=== PATIENT | female | born 1990 | race Caucasian/White ===

== ENCOUNTER 2018-07-10 10:16 | Observation (INO) ==
[2018-07-10] MEDS ORDERED: 0.9 % Sodium Chloride 1,000 ML IVC ONE (10:38)
[2018-07-10] MEDS ORDERED: Ondansetron 4 MG/2 ML VIAL IVP ONE (10:38)
--- NOTE | 2018-07-10 10:39 | Emergency Department Note ---
Disposition Clinical Impression: Cholelithiasis affecting in third trimester, antepartum Nausea & vomiting Qualifiers: Vomiting type: unspecified Vomiting Intractability: non-intractable Qualified Code(s): R11.2 - Nausea with vomiting, unspecified Disposition: Admitted As Inpatient Condition: Fair Abdominal Pain HPI - General Chief Complaint: ED Abdominal Pain Stated Complaint: 29&1-vomiting, abd pain Time Seen by Provider: 07/10/18 10:28 Source: patient Mode of arrival: ambulatory Limitations: no limitations Nursing Notes Reviewed: Yes Vital Signs Reviewed: Yes - History of Present Illness HPI Narrative: The patient is a 28 year old A0 female that is 29 weeks that presents to the ED for 2 days of abdominal pain. Per patient's report, starting two days ago she has had 2 days of persistent sharp non-radiating right upper quadrant abdominal pain. That she rates a 6-7/10 at present. She denies any exacerbating and alleviating factors. Patient admits to decreased appetite, nausea, and multiple episodes of vomiting and says she vomited 4-5 times today and says her vomit was yellow in color. She says she has been unable to tolerate PO. She denies any hematemesis, and coffee ground emesis. She denies any fever, chills, cough, nasal congestion, chest pain, shortness of breath, diarrhea, constipation, dysuria, hematuria, urinary urgency, back pain, vaginal bleeding, vaginal discharge, numbness, tingling, and weakness. Patient has no taken any medication for her symptoms today. Patient says she has felt her baby move today. She denies any complications with this or her prior . The history, physical exam, and medical decision making was performed by the medical student either while I was physically present and actively involved or I personally re-performed the exam and medical decision making. I have verified the accuracy of the medical student's documentation with regards to the history, physical exam findings, and medical decision making. Pain Scale: 8 - Related Data Home Medications Medication Instructions Recorded Confirmed Ondansetron HCl [Zofran] 4 mg PO Q6H PRN 07/10/18 07/10/18 Vit #108/Iron/FA 1 tab PO DAILY 07/10/18 07/10/18 [ One Tablet] Allergies Allergy/AdvReac Type Severity Reaction Status Date / Time No Known Allergies Allergy Verified 05/13/18 13:43 All systems ED: reviewed and negative except as stated. Constitutional: Denies: fever, chills Eyes: Denies: eye pain, vision change ENT ED: Denies: throat pain, congestion Cardiovascular: Denies: chest pain, palpitations Respiratory: Denies: cough, dyspnea Gastrointestinal: Reports: abdominal pain, nausea, vomiting. Denies: diarrhea, constipation, hematemesis, melena, hematochezia Genitourinary: Denies: urgency, dysuria, frequency, hematuria Musculoskeletal: Denies: back pain, neck pain Integumentary: Denies: rash, lesions Neurological: Denies: headache, weakness, numbness, paresthesias Abdominal Pain PMH - Past Medical History Medical history: Reports: other Female Surgical History: Reports: no surgical history [employer] history: Reports: no [employer] history Psychiatric history: Reports: no psych history - Social History Smoking status: Never smoker Alcohol use: Reports: none Drug use: Reports: none Physical Exam - General Limitations: no limitations General appearance: alert, in no apparent distress - Head Head exam: atraumatic, normocephalic - Eye Eye exam: Present: normal appearance. Absent: scleral icterus, conjunctival injection - ENT ENT exam: normal oropharynx, mucous membranes moist - Neck Neck exam: Present: normal inspection, full ROM, trachea midline - Chest Chest inspection: Present: normal inspection, symmetric chest wall rise - Respiratory Respiratory exam: Present: normal lung sounds bilaterally. Absent: respiratory distress, wheezes - Cardiovascular Cardiovascular exam: Present: regular rate, normal rhythm, normal heart sounds. Absent: systolic murmur, diastolic murmur, rubs, gallop - Abdominal Exam Abdominal exam: Present: tenderness, normal bowel sounds, other (gravid abdomen) . Absent: guarding, rebound, rigidity Abdominal tenderness: Present: RUQ, mild - Extremities Exam Extremities exam: Present: normal inspection, full ROM. Absent: pedal edema - Neurological Exam Neurological exam: Present: alert, oriented X3 - Psychiatric Psychiatric exam: Present: normal affect, normal mood - Skin Skin exam: Present: warm, dry, intact, normal color. Absent: rash, cyanosis, diaphoresis Course Vital Signs Temperature 97.8 F 07/10/18 10:22 Pulse Rate 116 07/10/18 10:22 Respiratory Rate 16 07/10/18 10:22 Blood Pressure 105/69 07/10/18 10:22 O2 Sat by Pulse Oximetry 98 07/10/18 10:22 Temperature 99.2 F 07/10/18 20:03 Pulse Rate 98 07/10/18 20:03 Respiratory Rate 14 07/10/18 20:03 Blood Pressure 91/55 07/10/18 20:03 O2 Sat by Pulse Oximetry 94 07/10/18 20:03 Oxygen Delivery Oxygen Delivery Room Air Abdominal Pain - MDM Narrative Medical decision making narrative: 28 year female who is 29 and 1 weeks presents emergency department with concern for right upper quadrant abdominal pain, nausea, vomiting. Patient 's vital signs were within normal limits. Patient was given fluids. She is also given Zofran. Pain medication. We obtained a gallbladder ultrasound and this revealed cholelithiasis with nonspecific bladder wall thickening as well as no pericholecystic fluid. At this time, patient symptomatic with her gallbladder. I spoke with Dr. Rubin who agreed to follow patient on the floor. He had no recommendations for any medication menstruation at time. I spoke with the [employer] midwifery agreed to accept patient for admission. Patient was still having discomfort at time of admission. Patient was given another dose of pain medication. Patient we will plan for admission. Hemodyanmically stable , uncomfortable, but feeling better than she did before arrival. Vital Signs Temperature 97.8 F 07/10/18 10:22 Pulse Rate 116 07/10/18 10:22 Respiratory Rate 16 07/10/18 10:22 Blood Pressure 105/69 07/10/18 10:22 O2 Sat by Pulse Oximetry 98 07/10/18 10:22 Temperature 99.2 F 07/10/18 20:03 Pulse Rate 98 07/10/18 20:03 Respiratory Rate 14 07/10/18 20:03 Blood Pressure 91/55 07/10/18 20:03 O2 Sat by Pulse Oximetry 94 07/10/18 20:03 Oxygen Delivery Oxygen Delivery Room Air Gallbladder Ultrasound 07/10/18 10:32 IMPRESSION: Cholelithiasis with nonspecific gallbladder wall thickening. No pericholecystic fluid. D/ / Jovani Renner MD / Jovani Renner MD Interpreting Provider: Jovani Renner MD 1248 hrs. US done; updating the patient. Then we will speak with [employer]. 55 hours: She still having some pain and nausea. We spoke with [employer] and they will go ahead and admit her to the hospital. Under their service with surgery consulting. We will consult with Dr. Rubin, who is on for surgery. Patient's in agreement with plan. - Lab Data Result diagrams: 07/10/18 10:39 07/10/18 11:25 Lab Results 07/10/18 07/10/18 07/10/18 Range/Units 10:37 10:37 10:39 WBC 18.1 H (4.3-11.1) K/mcL RBC 4.02 (3.82-4.97) M/mcL Hgb 12.2 (11.5-15.4) g/dL Hct 36.4 (35.3-44.9) % MCV 90.5 (83.0-100.0) fL MCH 30.3 (28.0-33.3) pg MCHC 33.5 (31.6-35.5) g/dL RDW 13.6 (11.5-14.5) % Plt Count 200 (140-400) K/mcL MPV 10.8 (9.4-12.4) fL Immature Gran % 1.2 (0-4) % Seg Neutrophils % 81.1 % Lymphocytes % 10.7 % Monocytes % 6.0 % Eosinophils % 0.7 % Basophils % 0.3 % Neutrophils # 14.7 H (1.6-8.9) K/mcL Lymphocytes # 1.9 (0.6-4.6) K/mcL Monocytes # 1.1 (0.0-1.3) K/mcL Eosinophils # 0.1 (0.0-0.6) K/mcL Basophils # 0.1 (0.0-0.2) K/mcL Sodium (136-145) mEq/L Potassium (3.5-5.1) mEq/L Chloride (98-107) mEq/L Carbon Dioxide (23-29) mEq/L BUN (6-20) mg/dL Creatinine (0.60-1.20) mg/dL Est GFR ( Amer) (> 60) Est GFR (Non-Af Amer) (> 60) BUN/Creatinine Ratio (6-26) Glucose (70-105) mg/dL Calculated Osmolality (280-300) Calcium (8.6-10.3) mg/dL Total Bilirubin (0.3-1.0) mg/dL AST (13-39) Units/L ALT (7-52) Units/L Alkaline Phosphatase (34-104) Units/L Serum Total Protein (6.4-8.9) g/dL Albumin (3.5-5.7) g/dL Globulin (2.4-3.5) g/dL Albumin/Globulin Ratio (1.1-2.2) Ur Specimen Adequacy See below A Urine Color Yellow (Yellow) Urine Clarity Cloudy A (Clear) Urine pH 7.0 (5.0-8.0) pH Units Ur Specific [place] 1.021 (1.010-1.025) Urine Protein Negative (Neg-Trace) mg/dL Urine Glucose (UA) Normal (Normal) mg/dL Urine Ketones 40 H (Negative) mg/dL Urine Blood Negative (Negative) Urine Nitrite Negative (Negative) Urine Bilirubin Negative (Negative) Urine Urobilinogen Normal (Normal) mg/dL Ur Leukocyte Esterase Small H (Negative) Urine Microscopic RBC 0-3 (0-3) per hpf Urine Microscopic WBC 0-3 (0-3) per hpf Ur Squamous Epith Cells Many H (None-Few) per lpf Urine Bacteria None Seen (None-Few) per hpf Hyaline Casts None Seen (None-Few) per lpf Urine Creatinine 23 mg/dL Protein/Creatinin Ratio TNP Urine Total Protein < 4 (1-14) mg/dL 07/10/18 Range/Units 11:25 WBC (4.3-11.1) K/mcL RBC (3.82-4.97) M/mcL Hgb (11.5-15.4) g/dL Hct (35.3-44.9) % MCV (83.0-100.0) fL MCH (28.0-33.3) pg MCHC (31.6-35.5) g/dL RDW (11.5-14.5) % Plt Count (140-400) K/mcL MPV (9.4-12.4) fL Immature Gran % (0-4) % Seg Neutrophils % % Lymphocytes % % Monocytes % % Eosinophils % % Basophils % % Neutrophils # (1.6-8.9) K/mcL Lymphocytes # (0.6-4.6) K/mcL Monocytes # (0.0-1.3) K/mcL Eosinophils # (0.0-0.6) K/mcL Basophils # (0.0-0.2) K/mcL Sodium 134 L (136-145) mEq/L Potassium 3.4 L (3.5-5.1) mEq/L Chloride 103 (98-107) mEq/L Carbon Dioxide 22 L (23-29) mEq/L BUN 7 (6-20) mg/dL Creatinine 0.43 L (0.60-1.20) mg/dL Est GFR ( Amer) > 60 (> 60) Est GFR (Non-Af Amer) > 60 (> 60) BUN/Creatinine Ratio 16 (6-26) Glucose 90 (70-105) mg/dL Calculated Osmolality 276 L (280-300) Calcium 9.0 (8.6-10.3) mg/dL Total Bilirubin 1.3 H (0.3-1.0) mg/dL AST 13 (13-39) Units/L ALT 8 (7-52) Units/L Alkaline Phosphatase 98 (34-104) Units/L Serum Total Protein 7.1 (6.4-8.9) g/dL Albumin 3.7 (3.5-5.7) g/dL Globulin 3.4 (2.4-3.5) g/dL Albumin/Globulin Ratio 1.1 (1.1-2.2) Ur Specimen Adequacy Urine Color (Yellow) Urine Clarity (Clear) Urine pH (5.0-8.0) pH Units Ur Specific [place] (1.010-1.025) Urine Protein (Neg-Trace) mg/dL Urine Glucose (UA) (Normal) mg/dL Urine Ketones (Negative) mg/dL Urine Blood (Negative) Urine Nitrite (Negative) Urine Bilirubin (Negative) Urine Urobilinogen (Normal) mg/dL Ur Leukocyte Esterase (Negative) Urine Microscopic RBC (0-3) per hpf Urine Microscopic WBC (0-3) per hpf Ur Squamous Epith Cells (None-Few) per lpf Urine Bacteria (None-Few) per hpf Hyaline Casts (None-Few) per lpf Urine Creatinine mg/dL Protein/Creatinin Ratio Urine Total Protein (1-14) mg/dL Attestation Statement - Attestation Attestation: This documentation is done with the assistance of Dragon dictation. Despite efforts made to ensure accuracy, there may be inaccuracies in adjunct faculty instructor or spelling and typographical errors. I examined this patient and my medical decision-making was reviewed with the Resident Physician. I agree with the documented findings, disposition and treatment plan as described except to the extent set forth below. Patient seen and evaluated today by Dr. Paulson and myself, I agree with his evaluation and management plan, supervise care the patient's stay. Patient was a with some abdominal pains nauseous she is 29 weeks readings been going okay during this she follows here. She is feeling baby move. We did a bedside ultrasound which showed heart tones and right upper quadrant showed no stones in the gallbladder. Benadryl workup on her and then speak with OB. Then reassess. Triage had spoke with OB prior to her coming into the emergency department and they said ever seen in emergency department first and then they would be happy to speak with us about her after we do a workup..
[2018-07-10] MEDS ORDERED: *HR* Nalbuphine 10 MG/ML AMPUL IV STA (10:47)
[2018-07-10 10:51] LABS: Bilirubin,Urine Negative (Negative); Blood,Urine Negative (Negative); Clarity,Urine Cloudy (Clear); Color,Urine Yellow (Yellow); Glucose,Urine (UA) Normal (Normal); Ketones,Urine 40 mg/dL (Negative); Leukocyte Esterase,Urine Small (Negative); Nitrite,Urine Negative (Negative); Protein,Urine Negative (Neg-Trace); Specific Gravity,Urine 1.021 (1.010-1.025); Urobilinogen,Urine Normal (Normal)
[2018-07-10 10:54] LABS: Bacteria,Urine None Seen per hpf (None-Few); Hyaline Casts,Urine None Seen per lpf (None-Few); RBC,Urine 0-3 per hpf (0-3); Squamous Epithelial Cell,Urine Many per lpf (None-Few); WBC,Urine 0-3 per hpf (0-3)
[2018-07-10 11:11] LABS: Creatinine,Urine 23 mg/dL
[2018-07-10 11:46] LABS: Basophils # 0.1 K/mcL (0.0-0.2); Basophils % 0.3 %; Eosinophils # 0.1 K/mcL (0.0-0.6); Eosinophils % 0.7 %; Hematocrit 36.4 % (35.3-44.9); Hemoglobin 12.2 g/dL (11.5-15.4); Immature Granulocytes % 1.2 % (0-4); Lymphocytes # 1.9 K/mcL (0.6-4.6); Lymphocytes % 10.7 %; Mean Corpuscular HGB Conc 33.5 g/dL (31.6-35.5); Mean Corpuscular Hemoglobin 30.3 pg (28.0-33.3); Mean Corpuscular Volume 90.5 fL (83.0-100.0); Mean Platelet Volume 10.8 fL (9.4-12.4); Monocytes # 1.1 K/mcL (0.0-1.3); Neutrophils # 14.7 K/mcL (1.6-8.9); Platelet Count 200 K/mcL (140-400); Red Blood Count 4.02 M/mcL (3.82-4.97); Red Cell Distribution Width 13.6 % (11.5-14.5); Segmented Neutrophils % 81.1 %
[2018-07-10] MEDS ORDERED: *HR* Nalbuphine 10 MG/ML AMPUL IVP STA (12:54)
[2018-07-10] MEDS ORDERED: 0.9 % Sodium Chloride 1,000 ML ONE (13:08)
[2018-07-10] MEDS: 0.9 % Sodium Chloride 1,000 ML IVC SCH ×2 (13:12→21:47)
[2018-07-10 13:23] LABS: Alanine Aminotransferase 8 Units/L (7-52); Albumin 3.7 g/dL (3.5-5.7); Albumin/Globulin Ratio 1.1 (1.1-2.2); Alkaline Phosphatase 98 Units/L (34-104); Aspartate Amino Transferase 13 Units/L (13-39); BUN/Creatinine Ratio 16 (6-26); Bilirubin,Total 1.3 mg/dL (0.3-1.0); Blood Urea Nitrogen 7 mg/dL (6-20); Carbon Dioxide 22 mEq/L (23-29); Chloride 103 mEq/L (98-107); Globulin 3.4 g/dL (2.4-3.5); Glucose 90 mg/dL (70-105); Osmolality,Calculated 276 (280-300); Potassium 3.4 mEq/L (3.5-5.1); Sodium 134 mEq/L (136-145); Total Protein 7.1 g/dL (6.4-8.9); eGFR For Non-African Americans > 60 (> 60)
--- NOTE | 2018-07-10 15:09 | General Surgery Consult Note ---
Date of Encounter: 07/10/18 Time of Encounter: 14:45 Assessment and Plan (1) Cholelithiasis affecting in third trimester, antepartum Current Visit: Yes Status: Acute Discussed with OB team and will proceed with conservative management including: Clear liquids for now and advance to low fat/bland diet as tolerated over the upcoming days IV fluids- 125ml/hour per primary team IV antibiotics-Zosyn Serial abdominal exams No surgical intervention indicated at this time Repeat am CBC If conservative management fails- recommend transfer to [facility] for further management History of Present Illness Consult date: 07/10/18 Reason for consult: gallstones (symptomatic) Requesting physician: Mack Thomas History of present illness: Yelena Curry is a 28 year old female who is 29 weeks . She presented to the ED today with complaints of a 2 days history of RUQ abdominal pain. She states that the pain has been constant for the past 2 days. She reports that it is aggrevated by eating and certain movements. She states that she does have some relief while laying on her left side. She has never experienced pain like this in the past. She does admit to associated nausea and vomiting over the past couple of days. She does not currently feel nauseated and feels thirsty. She admits to chills but denies any fevers. Denies any changes in bowel habits. Denies any diarrhea or constipation. Denies any difficulty with urination. She has had an US of the RUQ complete which shows evidence of gallstones with mild gallbladder wall thickening without pericholecystic fluid. We have been asked to see and evaluate the patient for recommendations. Past Med Surg Social Fam HX - Past Medical History Source: patient, old records reviewed Medical history: other Additional medical history: Hx of diet controlled GDM, tobacco abuse Psychiatric history: no psych history - Past Surgical History Surgical History: no surgical history - Social History Smoking Status: Former smoker Smokeless Tobacco Status: No Alcohol use: none Drug use: none Current living situation: Home - Independent Activity Level: Independent ambulation - Family History Mother Adopted: No Family Member Ethnicity: Non- Living Status: Still Living Hx Family Cardiac Disorders: No Hx Family Respiratory Disorders: No Hx Family Cancer: No Hx Family GI Disorders: No Hx Family Endocrine Disorder: No Hx Family Neuromuscular Disorders: No Hx Family Neurologic Disorders: No Hx Family HEENT Disorders: No Hx Family Autoimmune Disorders: No Medications and Allergies Ondansetron HCl [Zofran] 4 mg PO Q6H PRN 07/10/18 [History] Vit #108/Iron/FA [ One Tablet] 1 tab PO DAILY 07/10/18 [History] Allergy/AdvReac Type Severity Reaction Status Date / Time No Known Allergies Allergy Verified 05/13/18 13:43 Review of Systems All systems PM: reviewed and no additional remarkable complaints except as stated (in the HPI) All systems PM: The remainder of the systems were reviewed and are negative General Surgery Exam Initial Vital Signs Temp Pulse Resp BP Pulse Ox 97.8 F 116 16 105/69 98 07/10/18 10:22 07/10/18 10:22 07/10/18 10:22 07/10/18 10:22 07/10/18 10:22 - General physical appearance well developed, well nourished, no distress - Eyes PERRL, normal ocular movement - ENT normal mucosa, atraumatic, normocephalic - Neck trachea midline - Respiratory normal expansion, normal respiratory effort, clear to auscultation - Cardiovascular Cardiovascular exam: Present: RRR - Abdomen Abdomen general surgery: Present: bowel sounds present, soft, tender (minimal) Abdominal Tenderness: Present: RUQ - Integumentary Integumentary general surgery: Present: warm and dry - Neurologic Present: CN 2-12 grossly intact - Musculoskeletal Present: normal gait, normal posture - Psychiatric Psychiatric general surgery: Present: appropriate, oriented to person, oriented to place, oriented to time, speech is normal, memory intact Exam Initial Vital Signs Temp Pulse Resp BP Pulse Ox 97.8 F 116 16 105/69 98 07/10/18 10:22 07/10/18 10:22 07/10/18 10:22 07/10/18 10:22 07/10/18 10:22 Results - Labs 07/10/18 10:39 07/10/18 11:25 Abnormal lab results WBC 18.1 K/mcL (4.3-11.1) H 07/10/18 10:39 Neutrophils # 14.7 K/mcL (1.6-8.9) H 07/10/18 10:39 Sodium 134 mEq/L (136-145) L 07/10/18 11:25 Potassium 3.4 mEq/L (3.5-5.1) L 07/10/18 11:25 Carbon Dioxide 22 mEq/L (23-29) L 07/10/18 11:25 Creatinine 0.43 mg/dL (0.60-1.20) L 07/10/18 11:25 Calculated Osmolality 276 (280-300) L 07/10/18 11:25 Total Bilirubin 1.3 mg/dL (0.3-1.0) H 07/10/18 11:25 Ur Specimen Adequacy See below A 07/10/18 10:37 Urine Clarity Cloudy (Clear) A 07/10/18 10:37 Urine Ketones 40 mg/dL (Negative) H 07/10/18 10:37 Ur Leukocyte Esterase Small (Negative) H 07/10/18 10:37 Ur Squamous Epith Cells Many per lpf (None-Few) H 07/10/18 10:37 All other labs normal. - Imaging US - abdomen: report reviewed Additional studies: Gallbladder Ultrasound 07/10/18 10:32 IMPRESSION: Cholelithiasis with nonspecific gallbladder wall thickening. No pericholecystic fluid. D/ / Jovani Renner MD / Jovani Renner MD Interpreting Provider: Jovani Renner MD Consult Discharge Plan - Plan Referrals: NONE,PCP [Primary Care Provider] - - Attending Attestation For this encounter, I have reviewed the BARREL INSPECTOR or PA documentation, treatment plan, and medical decision making; and I have had face to face time with this patient.
[2018-07-10] MEDS: Piperacillin/Tazobactam 3.375 GM in 0.9 % Sodium Chloride Mini Bag 100 ML IVPB SCH ×2 (16:21→23:40)
--- NOTE | 2018-07-10 17:11 | OB/GYN History & Physical ---
Date of Encounter: 07/10/18 Time of Encounter: 17:06 Assessment and Plan (1) 30 weeks gestation of Current visit: Yes Status: Acute (2) Cholelithiasis affecting in third trimester, antepartum Current visit: Yes Status: Acute Surgery consult ordered. Pain medication PRN. Currently on clear liquid diet. Will advance to bland diet as tolerated. Dietary consult ordered (3) Nausea & vomiting Current visit: Yes Status: Acute Qualifiers: Vomiting type: unspecified Vomiting Intractability: non-intractable Qualified Code(s): R11.2 - Nausea with vomiting, unspecified (4) History of gestational diabetes in prior , currently in third trimester Current visit: Yes Status: Acute Will do fasting and 2 hour PP accuchecks while inpatient. I do not feel she would tolerate a 100 gm glucose load at this time due to her pain. If accuchecks normal. Continue to monitor. A1C added to AM labs also. History of Present Illness Chief complaint: RUQ pain with nausea and vomiting HPI: Ms. Curry is a 28 year old female G 3 P 1-0-1-1 at 30 1/7 weeks presented to emergency department for 2 days of RUQ pain and nausea and vomiting. She denies any knowledge of gallstones prior to today. She denies any complications with this . She was a diet controlled diabetic with her first . She has an order for a 3 hour GTT since 06/24/18 but has yet to complete the test. She denies any contractions, vaginal bleeding or leaking fluid. She does report good movements. Past Med Surg Social Fam HX - Past Medical History Source: patient Medical history: no medical history, other Additional medical history: Hx of diet controlled GDM, tobacco abuse Psychiatric history: no psych history - Past Surgical History Surgical History: no surgical history Additional surgical history: Hx of diet controlled GDM, Tobacco use - Social History Smoking Status: Former smoker Smokeless Tobacco Status: No Alcohol use: none Drug use: none - Family History Mother Adopted: No Family Member Ethnicity: Non- Living Status: Still Living Hx Family Cardiac Disorders: No Hx Family Respiratory Disorders: No Hx Family Cancer: No Hx Family GI Disorders: No Hx Family Endocrine Disorder: No Hx Family Neuromuscular Disorders: No Hx Family Neurologic Disorders: No Hx Family HEENT Disorders: No Hx Family Autoimmune Disorders: No Obstetrical History - Pregnancies : 3 Para: 1 Term: 1 : 0 Ab's: 1 Livin - History/Complications History/Complications: GDM A1 Medications and Allergies Ondansetron HCl [Zofran] 4 mg PO Q6H PRN 07/10/18 [History] Vit #108/Iron/FA [ One Tablet] 1 tab PO DAILY 07/10/18 [History ] 3 Allergy/AdvReac Type Severity Reaction Status Date / Time No Known Allergies Allergy Verified 05/13/18 13:43 Review of System OB All systems PM: reviewed and no additional remarkable complaints except as stated - Constitutional Constitutional ROS IM: chills, no fatigue, no fever(s), no headache(s), no increased appetite, no lethargy, no weakness - Gastrointestinal Gastrointestinal: abdominal pain, nausea, vomiting (improved with antiemetics given in ER), no change in bowel habits, no constipation, no diarrhea - Genitourinary Genitourinary: no difficulty urinating, no difficulty voiding, no dysuria, no flank pain, no hematuria, no vaginal discharge - Menstruation Menstruation: amenorrhea Exam - Vital Signs Vital signs: Initial Vital Signs Temp Pulse Resp BP Pulse Ox 97.8 F 116 16 105/69 98 07/10/18 10:22 07/10/18 10:22 07/10/18 10:22 07/10/18 10:22 07/10/18 10:22 - Constitutional Constitutional: well developed, well nourished, no acute distress, average body habitus - HEENT HEENT: EOMI - Lungs Respiratory exam: CTAB - Cardiovascular Cardiovascular exam: RRR - Abdomen Abdomen: Present: bowel sounds normal, gravid, non tender. Absent: guarding noted - Extremities Extremities exam: warm - Comments Comments: monitoring pending Results Result Diagrams: 07/10/18 10:39 07/10/18 11:25 Abnormal lab results WBC 18.1 K/mcL (4.3-11.1) H 07/10/18 10:39 Neutrophils # 14.7 K/mcL (1.6-8.9) H 07/10/18 10:39 Sodium 134 mEq/L (136-145) L 07/10/18 11:25 Potassium 3.4 mEq/L (3.5-5.1) L 07/10/18 11:25 Carbon Dioxide 22 mEq/L (23-29) L 07/10/18 11:25 Creatinine 0.43 mg/dL (0.60-1.20) L 07/10/18 11:25 Calculated Osmolality 276 (280-300) L 07/10/18 11:25 Total Bilirubin 1.3 mg/dL (0.3-1.0) H 07/10/18 11:25 Ur Specimen Adequacy See below A 07/10/18 10:37 Urine Clarity Cloudy (Clear) A 07/10/18 10:37 Urine Ketones 40 mg/dL (Negative) H 07/10/18 10:37 Ur Leukocyte Esterase Small (Negative) H 07/10/18 10:37 Ur Squamous Epith Cells Many per lpf (None-Few) H 07/10/18 10:37 All other labs normal. US - abdomen: report reviewed (Gallstones and wall thickening)
[2018-07-10] MEDS: Ondansetron ODT 4 MG TAB.RAPDIS PO PRN (18:20)
[2018-07-10] MEDS: *HR* HYDROmorphone (PF) 1 MG/ML SYRINGE IVP PRN ×3 (18:20→21:48)
[2018-07-11] MEDS ORDERED: 0.9 % Sodium Chloride 1,000 ML IV.SOLN IV ONE (10:34)
[2018-07-11] MEDS ORDERED: Ondansetron ODT 4 MG TAB.RAPDIS PO ONE ×2 (10:34)
[2018-07-11] MEDS ORDERED: *HR* HYDROmorphone (PF) 1 MG/ML SYRINGE IVP ONE ×4 (10:34)
[2018-07-11] MEDS ORDERED: Piperacillin/Tazobactam 3.375 GM VIAL IVPB ONE (10:34)
[2018-07-11] MEDS ORDERED: Prenatal Vit/FA 1 EACH TABLET PO ONE (10:34)
[2018-07-11] MEDS ORDERED: 0.9 % Sodium Chloride (Mini-Bag +) 100 ML IVBAG IVC ONE (10:34)
[2018-07-11 11:20] LABS: Basophils # 0.1 K/mcL (0.0-0.2); Basophils % 0.5 %; Eosinophils # 0.2 K/mcL (0.0-0.6); Eosinophils % 1.4 %; Hematocrit 31.1 % (35.3-44.9); Hemoglobin 10.3 g/dL (11.5-15.4); Immature Granulocytes % 1.5 % (0-4); Immature Platelets 5.8 % (1.1-6.1); Lymphocytes # 1.9 K/mcL (0.6-4.6); Lymphocytes % 12.8 %; Mean Corpuscular HGB Conc 33.1 g/dL (31.6-35.5); Mean Corpuscular Hemoglobin 30.3 pg (28.0-33.3); Mean Corpuscular Volume 91.5 fL (83.0-100.0); Mean Platelet Volume 11.2 fL (9.4-12.4); Monocytes % 7.1 %; Neutrophils # 11.2 K/mcL (1.6-8.9); Platelet Count 182 K/mcL (140-400); Red Cell Distribution Width 13.6 % (11.5-14.5); Segmented Neutrophils % 76.7 %
--- NOTE | 2018-07-11 12:08 | General Surgery Progress Note ---
Date of Encounter: 07/11/18 Time of Encounter: 11:15 - Assessment and Plan (1) Cholelithiasis affecting in third trimester, antepartum Current Visit: Yes Status: Acute WBC is downtrending 18.1 to 14.2 today. Patient reports she is feeling better. She is afebrile. Tolerating liquids with increased pain, n/v. She reports RUQ pain is mostly only when she moves around. She feels much improved since yesterday. She will be okay to discharge from a surgical perspective she tolerates a full liquid diet without increased pain or vomiting and pending IV antibitoics (can transition to PO augmentin at d.c.). She is recommended to follow-up when she is or sooner if symptoms worsen. Surgery will sign off at this time. Thank you for allowing us to participate in Ms Curry care. Subjective Patient reports: no new complaints, feels better, still having pain (RUQ and only with activity), pain is less, tolerating liquids well, voiding w/o difficulty, flatus, no bowel movement, afebrile Objective Intake and Output 07/10/18 07/11/18 07/11/18 23:59 07:59 15:59 Intake Total 1100 / 1100 Output Total 600 / 600 Balance 1100 / 1100 -600 / -600 Intake: IV Fluids 1100 / 1100 0.9 % Sodium Chloride 1,000 ML 1000 / 1000 @ 125 mls/hr IVC .Q8H JOSE CARLOS Rx#: [id number] Zosyn 3.375 GM In 0.9 % Sodium 100 / 100 Chloride (Mini-Bag +) 100 ML @ 25 mls/hr IVPB Q8HR JOSE CARLOS Rx#: [id number] Output: Urine 600 / 600 Other: Weight 74.162 kg Blood Glucose* 87 Patient Weight 07/11/18 23:59 Weight 74.162 kg - General physical appearance well nourished, no distress, no pain - Eyes normal ocular movement - ENT atraumatic, normocephalic - Neck Neck exam: trachea midline - Respiratory normal expansion, normal respiratory effort, clear to auscultation - Cardiovascular Cardiovascular exam: Present: RRR - Abdomen Abdomen: Present: bowel sounds present, soft, tender (RUQ) Hernia: none - Integumentary no abnormal pigmentation - Neurologic normal sensation - Musculoskeletal normal posture - Psychiatric oriented to time, oriented to person, oriented to place, memory intact - Labs 07/10/18 10:39 07/10/18 11:25 Diabetes panel 07/10/18 Range/Units 11:25 Sodium 134 L (136-145) mEq/L Potassium 3.4 L (3.5-5.1) mEq/L Chloride 103 (98-107) mEq/L Carbon Dioxide 22 L (23-29) mEq/L BUN 7 (6-20) mg/dL Creatinine 0.43 L (0.60-1.20) mg/dL Glucose 90 (70-105) mg/dL Calcium 9.0 (8.6-10.3) mg/dL AST 13 (13-39) Units/L ALT 8 (7-52) Units/L Alkaline Phosphatase 98 (34-104) Units/L Albumin 3.7 (3.5-5.7) g/dL Calcium panel 07/10/18 Range/Units 11:25 Calcium 9.0 (8.6-10.3) mg/dL Albumin 3.7 (3.5-5.7) g/dL Pituitary panel 07/10/18 Range/Units 11:25 Sodium 134 L (136-145) mEq/L Potassium 3.4 L (3.5-5.1) mEq/L Chloride 103 (98-107) mEq/L Carbon Dioxide 22 L (23-29) mEq/L BUN 7 (6-20) mg/dL Creatinine 0.43 L (0.60-1.20) mg/dL Glucose 90 (70-105) mg/dL Calcium 9.0 (8.6-10.3) mg/dL Adrenal panel 07/10/18 Range/Units 11:25 Sodium 134 L (136-145) mEq/L Potassium 3.4 L (3.5-5.1) mEq/L Chloride 103 (98-107) mEq/L Carbon Dioxide 22 L (23-29) mEq/L BUN 7 (6-20) mg/dL Creatinine 0.43 L (0.60-1.20) mg/dL Glucose 90 (70-105) mg/dL Calcium 9.0 (8.6-10.3) mg/dL Total Bilirubin 1.3 H (0.3-1.0) mg/dL AST 13 (13-39) Units/L ALT 8 (7-52) Units/L Alkaline Phosphatase 98 (34-104) Units/L Albumin 3.7 (3.5-5.7) g/dL - VTE Documentation of Mechanical Device: Intermittent pneumatic compression device Consult Discharge Plan - Plan Referrals: NONE,PCP [Primary Care Provider] -
[2018-07-11 12:22] LABS: Albumin/Globulin Ratio 1.2 (1.1-2.2); Bilirubin,Direct 0.3 mg/dL (0.0-0.2); Bilirubin,Indirect 1.3 mg/dL (0.0-1.2); Bilirubin,Total 1.6 mg/dL (0.3-1.0); Globulin 2.5 g/dL (2.4-3.5); Total Protein 5.5 g/dL (6.4-8.9)
[2018-07-11] MEDS: *HR* OxyCODONE/APAP 5/325 TABLET PO PRN ×3 (12:49→21:07)
--- NOTE | 2018-07-11 13:19 | OB/GYN Progress Note ---
Date of Encounter: 07/11/18 Time of Encounter: 13:16 - Assessment and Plan (1) Cholelithiasis affecting in third trimester, antepartum Current Visit: Yes Status: Acute we will advance patient's diet, switch dilaudid to percocet, stop antibiotics surgery has signed, no surgical interventions needed at this time. Subjective - Subjective Interval history: Patient is tolerating PO liquids, no LOF, VB or ctxs, feels good FM Objective - Vital Signs Vital Signs: Vital Signs Temp Pulse Resp BP Pulse Ox 07/11/18 01:30 98.7 F 94 14 88/55 95 07/10/18 23:40 98.7 F 100 14 97/59 97 07/10/18 20:03 99.2 F 98 14 91/55 94 07/10/18 14:30 98.8 F 98 16 101/68 97 Intake and Output 07/10/18 07/11/18 07/11/18 23:59 07:59 15:59 Intake Total 1100 / 1100 Output Total 600 / 600 200 / 200 Balance 1100 / 1100 -600 / -600 -200 / -200 Intake: IV Fluids 1100 / 1100 0.9 % Sodium Chloride 1,000 ML 1000 / 1000 @ 125 mls/hr IVC .Q8H JOSE CARLOS Rx#: [id number] Zosyn 3.375 GM In 0.9 % Sodium 100 / 100 Chloride (Mini-Bag +) 100 ML @ 25 mls/hr IVPB Q8HR JOSE CARLOS Rx#: [id number] Output: Urine 600 / 600 200 / 200 Other: Stool Characteristics Normal for Patient Weight 74.162 kg Blood Glucose* 87 Patient Weight 07/11/18 23:59 Weight 74.162 kg - Exam FHR: category 1 - Labs Labs: Abnormal lab results WBC 14.6 K/mcL (4.3-11.1) H 07/11/18 04:23 RBC 3.40 M/mcL (3.82-4.97) L 07/11/18 04:23 Hgb 10.3 g/dL (11.5-15.4) L D 07/11/18 04:23 Hct 31.1 % (35.3-44.9) L 07/11/18 04:23 Neutrophils # 11.2 K/mcL (1.6-8.9) H 07/11/18 04:23 Sodium 134 mEq/L (136-145) L 07/10/18 11:25 Potassium 3.4 mEq/L (3.5-5.1) L 07/10/18 11:25 Carbon Dioxide 22 mEq/L (23-29) L 07/10/18 11:25 Creatinine 0.43 mg/dL (0.60-1.20) L 07/10/18 11:25 Calculated Osmolality 276 (280-300) L 07/10/18 11:25 Total Bilirubin 1.6 mg/dL (0.3-1.0) H 07/11/18 04:23 Direct Bilirubin 0.3 mg/dL (0.0-0.2) H 07/11/18 04:23 Indirect Bilirubin 1.3 mg/dL (0.0-1.2) H 07/11/18 04:23 AST 12 Units/L (13-39) L 07/11/18 04:23 Serum Total Protein 5.5 g/dL (6.4-8.9) L 07/11/18 04:23 Albumin 3.0 g/dL (3.5-5.7) L 07/11/18 04:23 Ur Specimen Adequacy See below A 07/10/18 10:37 Urine Clarity Cloudy (Clear) A 07/10/18 10:37 Urine Ketones 40 mg/dL (Negative) H 07/10/18 10:37 Ur Leukocyte Esterase Small (Negative) H 07/10/18 10:37 Ur Squamous Epith Cells Many per lpf (None-Few) H 07/10/18 10:37
[2018-07-11 14:24] LABS: Estimated Average Glucose 91 mg/dl; Hemoglobin A1C 4.8 %
[2018-07-11] MEDS: 0.9 % Sodium Chloride 1,000 ML IVC SCH ×2 (15:57→15:58)
[2018-07-11] MEDS: Piperacillin/Tazobactam 3.375 GM in 0.9 % Sodium Chloride Mini Bag 100 ML IVPB SCH ×2 (15:57→15:58)
[2018-07-11] MEDS: Prenatal Vit/FA 1 EACH TABLET PO SCH (15:58)
[2018-07-11] MEDS: Ondansetron ODT 4 MG TAB.RAPDIS PO PRN (16:56)
[2018-07-12] MEDS: Piperacillin/Tazobactam 3.375 GM in 0.9 % Sodium Chloride Mini Bag 100 ML IVPB SCH ×2 (00:10→08:57)
[2018-07-12] MEDS: *HR* OxyCODONE/APAP 5/325 TABLET PO PRN (01:45)
[2018-07-12] MEDS ORDERED: *HR* OxyCODONE/APAP 5/325 TABLET PO PRN (07:18)
--- NOTE | 2018-07-12 07:29 | Discharge Summary ---
Date of Encounter: 07/12/18 Time of Encounter: 07:30 - Discharge Diagnosis (1) Cholelithiasis affecting in third trimester, antepartum Priority: Primary Status: Acute Comments: patient is feeling much better, counseled her that we may not be able to keep her pain under complete control as the gallstones are numerous, return precautions given, 1 week worth of pain meds given to follow up in the office, ok for discharge - Discharge Medications Prescriptions: OxyCODONE/APAP 5/325 [Percocet 5/325 MG] 1 each PO Q6HR PRN 7 Days #20 tablet PRN Reason: Pain Home Medications: Ondansetron HCl [Zofran] 4 mg PO Q6H PRN 07/10/18 [History] Vit #108/Iron/FA [ One Tablet] 1 tab PO DAILY 07/10/18 [History] OxyCODONE/APAP 5/325 [Percocet 5/325 MG] 1 each PO Q6HR PRN 7 Days #20 tablet 07/12/18 [Rx] Allergies/Adverse Reactions: Allergy/AdvReac Type Severity Reaction Status Date / Time No Known Allergies Allergy Verified 05/13/18 13:43 Data Procedures and tests throughout hospitalization: Laboratory Tests 07/10/18 07/10/18 07/10/18 10:37 10:37 10:39 WBC 18.1 H RBC 4.02 Hgb 12.2 Hct 36.4 MCV 90.5 MCH 30.3 MCHC 33.5 RDW 13.6 Plt Count 200 MPV 10.8 Immature Gran % 1.2 Seg Neutrophils % 81.1 Lymphocytes % 10.7 Monocytes % 6.0 Eosinophils % 0.7 Basophils % 0.3 Neutrophils # 14.7 H Lymphocytes # 1.9 Monocytes # 1.1 Eosinophils # 0.1 Basophils # 0.1 Immature Plt Fraction Sodium Potassium Chloride Carbon Dioxide BUN Creatinine Est GFR ( Amer) Est GFR (Non-Af Amer) BUN/Creatinine Ratio Glucose POC Glucose Est Mean Plasma Glucose Hemoglobin A1c Calculated Osmolality Calcium Total Bilirubin Direct Bilirubin Indirect Bilirubin AST ALT Alkaline Phosphatase Serum Total Protein Albumin Globulin Albumin/Globulin Ratio Ur Specimen Adequacy See below A Urine Color Yellow Urine Clarity Cloudy A Urine pH 7.0 Ur Specific [place] 1.021 Urine Protein Negative Urine Glucose (UA) Normal Urine Ketones 40 H Urine Blood Negative Urine Nitrite Negative Urine Bilirubin Negative Urine Urobilinogen Normal Ur Leukocyte Esterase Small H Urine Microscopic RBC 0-3 Urine Microscopic WBC 0-3 Ur Squamous Epith Cells Many H Urine Bacteria None Seen Hyaline Casts None Seen Urine Creatinine 23 Protein/Creatinin Ratio TNP Urine Total Protein < 4 07/10/18 07/10/18 07/11/18 11:25 19:50 04:23 WBC 14.6 H RBC 3.40 L Hgb 10.3 L D Hct 31.1 L MCV 91.5 MCH 30.3 MCHC 33.1 RDW 13.6 Plt Count 182 MPV 11.2 Immature Gran % 1.5 Seg Neutrophils % 76.7 Lymphocytes % 12.8 Monocytes % 7.1 Eosinophils % 1.4 Basophils % 0.5 Neutrophils # 11.2 H Lymphocytes # 1.9 Monocytes # 1.0 Eosinophils # 0.2 Basophils # 0.1 Immature Plt Fraction 5.8 Sodium 134 L Potassium 3.4 L Chloride 103 Carbon Dioxide 22 L BUN 7 Creatinine 0.43 L Est GFR ( Amer) > 60 Est GFR (Non-Af Amer) > 60 BUN/Creatinine Ratio 16 Glucose 90 POC Glucose 87 Est Mean Plasma Glucose Hemoglobin A1c Calculated Osmolality 276 L Calcium 9.0 Total Bilirubin 1.3 H Direct Bilirubin Indirect Bilirubin AST 13 ALT 8 Alkaline Phosphatase 98 Serum Total Protein 7.1 Albumin 3.7 Globulin 3.4 Albumin/Globulin Ratio 1.1 Ur Specimen Adequacy Urine Color Urine Clarity Urine pH Ur Specific [place] Urine Protein Urine Glucose (UA) Urine Ketones Urine Blood Urine Nitrite Urine Bilirubin Urine Urobilinogen Ur Leukocyte Esterase Urine Microscopic RBC Urine Microscopic WBC Ur Squamous Epith Cells Urine Bacteria Hyaline Casts Urine Creatinine Protein/Creatinin Ratio Urine Total Protein 07/11/18 07/11/18 07/11/18 04:23 04:23 07:05 WBC RBC Hgb Hct MCV MCH MCHC RDW Plt Count MPV Immature Gran % Seg Neutrophils % Lymphocytes % Monocytes % Eosinophils % Basophils % Neutrophils # Lymphocytes # Monocytes # Eosinophils # Basophils # Immature Plt Fraction Sodium Potassium Chloride Carbon Dioxide BUN Creatinine Est GFR ( Amer) Est GFR (Non-Af Amer) BUN/Creatinine Ratio Glucose POC Glucose 79 Est Mean Plasma Glucose 91 Hemoglobin A1c 4.8 Calculated Osmolality Calcium Total Bilirubin 1.6 H Direct Bilirubin 0.3 H Indirect Bilirubin 1.3 H AST 12 L ALT 7 Alkaline Phosphatase 76 Serum Total Protein 5.5 L Albumin 3.0 L Globulin 2.5 Albumin/Globulin Ratio 1.2 Ur Specimen Adequacy Urine Color Urine Clarity Urine pH Ur Specific [place] Urine Protein Urine Glucose (UA) Urine Ketones Urine Blood Urine Nitrite Urine Bilirubin Urine Urobilinogen Ur Leukocyte Esterase Urine Microscopic RBC Urine Microscopic WBC Ur Squamous Epith Cells Urine Bacteria Hyaline Casts Urine Creatinine Protein/Creatinin Ratio Urine Total Protein 07/12/18 00:11 WBC RBC Hgb Hct MCV MCH MCHC RDW Plt Count MPV Immature Gran % Seg Neutrophils % Lymphocytes % Monocytes % Eosinophils % Basophils % Neutrophils # Lymphocytes # Monocytes # Eosinophils # Basophils # Immature Plt Fraction Sodium Potassium Chloride Carbon Dioxide BUN Creatinine Est GFR ( Amer) Est GFR (Non-Af Amer) BUN/Creatinine Ratio Glucose POC Glucose 81 Est Mean Plasma Glucose Hemoglobin A1c Calculated Osmolality Calcium Total Bilirubin Direct Bilirubin Indirect Bilirubin AST ALT Alkaline Phosphatase Serum Total Protein Albumin Globulin Albumin/Globulin Ratio Ur Specimen Adequacy Urine Color Urine Clarity Urine pH Ur Specific [place] Urine Protein Urine Glucose (UA) Urine Ketones Urine Blood Urine Nitrite Urine Bilirubin Urine Urobilinogen Ur Leukocyte Esterase Urine Microscopic RBC Urine Microscopic WBC Ur Squamous Epith Cells Urine Bacteria Hyaline Casts Urine Creatinine Protein/Creatinin Ratio Urine Total Protein Labs on day of discharge: Labs from last 24 hours 07/12/18 07/11/18 07/11/18 00:11 07:05 04:23 WBC RBC Hgb Hct MCV MCH MCHC RDW Plt Count MPV Immature Gran % Seg Neutrophils % Lymphocytes % Monocytes % Eosinophils % Basophils % Neutrophils # Lymphocytes # Monocytes # Eosinophils # Basophils # Immature Plt Fraction POC Glucose 81 79 Est Mean Plasma Glucose 91 Hemoglobin A1c 4.8 Total Bilirubin Direct Bilirubin Indirect Bilirubin AST ALT Alkaline Phosphatase Serum Total Protein Albumin Globulin Albumin/Globulin Ratio 07/11/18 07/11/18 04:23 04:23 WBC 14.6 H RBC 3.40 L Hgb 10.3 L D Hct 31.1 L MCV 91.5 MCH 30.3 MCHC 33.1 RDW 13.6 Plt Count 182 MPV 11.2 Immature Gran % 1.5 Seg Neutrophils % 76.7 Lymphocytes % 12.8 Monocytes % 7.1 Eosinophils % 1.4 Basophils % 0.5 Neutrophils # 11.2 H Lymphocytes # 1.9 Monocytes # 1.0 Eosinophils # 0.2 Basophils # 0.1 Immature Plt Fraction 5.8 POC Glucose Est Mean Plasma Glucose Hemoglobin A1c Total Bilirubin 1.6 H Direct Bilirubin 0.3 H Indirect Bilirubin 1.3 H AST 12 L ALT 7 Alkaline Phosphatase 76 Serum Total Protein 5.5 L Albumin 3.0 L Globulin 2.5 Albumin/Globulin Ratio 1.2 - Impressions ITS Impressions Gallbladder Ultrasound 07/10/18 10:32 IMPRESSION: Cholelithiasis with nonspecific gallbladder wall thickening. No pericholecystic fluid. D/ / Jovani Renner MD / Jovani Renner MD Interpreting Provider: Jovani Renner MD Date of admission: 07/10/18 13:05 Primary care physician: PCP NONE Consults: 07/10/18 12:57 Consult to Surgery [CONS] Stat Consulting Provider: Yo Rubin Reason for Consult: cholelithiasis, GB wall thickening, symptomatic Time Notified: 12:57 Call Completed: Yes 07/10/18 17:05 consult to ceramist [Consult to Nutrition] [CONS] Routine Comment: Consulting Provider: NUTRITION Reason for Dietary Consult: Diet Education - Patient Status Disposition: Home, Self-Care Condition: Fair Overall status at discharge: patient is progressing back to baseline - Discharge Instructions Follow Up With: Yo Rubin DO [Partnered Physician] - 10/08/18 2:45 pm NONE,PCP [Primary Care Provider] - Hospital Course [employer] Time Attestation: Total time spent providing and/or coordinating discharge services: Exam - Constitutional Vitals: Temp Pulse Resp BP Pulse Ox 97.8 F 91 14 82/46 96 07/12/18 04:50 07/12/18 04:50 07/12/18 04:50 07/12/18 04:50 07/12/18 04:50 General appearance IM: no acute distress - Respiratory Respiratory exam: Present: CTAB - Cardiovascular Cardiovascular exam IM: Present: RRR - GI/Abdominal GI/Abdominal exam IM: guarding, soft - VTE Documentation of Mechanical Device: Intermittent pneumatic compression device
[2018-07-12 07:51] VITALS: BP 96/60
[2018-07-12] MEDS: Ondansetron ODT 4 MG TAB.RAPDIS PO PRN (08:57)
[2018-07-12] MEDS: Prenatal Vit/FA 1 EACH TABLET PO SCH (08:57)
== END 2018-07-12 10:35 | disposition home or self-care (01) ==
LOC: EMEROOARM 10:16 → 1NENUOBS 10:16
PROVIDERS: ADMIT Registered Nurse; ATTEND Registered Nurse

== ENCOUNTER → 2018-08-07 20:35 | Observation (INO) ==
[2018-08-07 12:28] LABS: Basophils # 0.1 K/mcL (0.0-0.2); Basophils % 0.4 %; Eosinophils # 0.1 K/mcL (0.0-0.6); Eosinophils % 0.8 %; Hematocrit 36.8 % (35.3-44.9); Hemoglobin 12.4 g/dL (11.5-15.4); Immature Granulocytes % 1.7 % (0-4); Lymphocytes # 1.3 K/mcL (0.6-4.6); Lymphocytes % 9.3 %; Mean Corpuscular HGB Conc 33.7 g/dL (31.6-35.5); Mean Corpuscular Hemoglobin 29.8 pg (28.0-33.3); Mean Corpuscular Volume 88.5 fL (83.0-100.0); Mean Platelet Volume 10.8 fL (9.4-12.4); Monocytes # 0.7 K/mcL (0.0-1.3); Monocytes % 5.2 %; Neutrophils # 11.3 K/mcL (1.6-8.9); Platelet Count 213 K/mcL (140-400); Red Blood Count 4.16 M/mcL (3.82-4.97); Red Cell Distribution Width 13.6 % (11.5-14.5); Segmented Neutrophils % 82.6 %
[2018-08-07] MEDS: Ringers Solution, Lactated 1,000 ML IVC SCH ×3 (12:42→18:09)
[2018-08-07 12:52] LABS: Alanine Aminotransferase 15 Units/L (7-52); Aspartate Amino Transferase 19 Units/L (13-39); BUN/Creatinine Ratio 20 (6-26); Blood Urea Nitrogen 9 mg/dL (6-20); Carbon Dioxide 20 mEq/L (23-29); Chloride 102 mEq/L (98-107); Glucose 103 mg/dL (70-105); Lactate Dehydrogenase 113 Units/L (140-271); Osmolality,Calculated 279 (280-300); Potassium 3.3 mEq/L (3.5-5.1); Sodium 135 mEq/L (136-145); Uric Acid 4.9 mg/dL (2.3-7.6); eGFR For Non-African Americans > 60 (> 60)
[2018-08-07 13:24] LABS: Bilirubin,Urine Negative (Negative); Blood,Urine Small (Negative); Clarity,Urine Turbid (Clear); Color,Urine Yellow (Yellow); Glucose,Urine (UA) Normal (Normal); Ketones,Urine 40 mg/dL (Negative); Leukocyte Esterase,Urine Large (Negative); Nitrite,Urine Negative (Negative); PH,Urine 5.5 pH Units (5.0-8.0); Protein,Urine Trace mg/dL (Neg-Trace); Specific Gravity,Urine 1.013 (1.010-1.025); Urobilinogen,Urine Normal (Normal)
[2018-08-07 13:39] LABS: RBC,Urine Present per hpf (0-3); Squamous Epithelial Cell,Urine Many per lpf (None-Few)
[2018-08-07 13:40] LABS: Amphetamine Screen,Urine Negative ng/mL (Cutoff=1000); Barbiturate Screen,Urine Negative ng/mL (Cutoff=200); Benzodiazepines Screen,Urine Negative ng/mL (Cutoff=200); Cannabinoid Screen,Urine Negative ng/mL (Cutoff = 50); Cocaine Screen,Urine Negative ng/mL (Cutoff= 300); Opiate Screen,Urine Negative ng/mL (Cutoff=300); Phencyclidine Screen,Urine Negative ng/mL (Cutoff=25); WBC,Urine Present per hpf (0-3)
[2018-08-07 13:41] LABS: Bacteria,Urine Many per hpf (None-Few)
--- NOTE | 2018-08-07 17:14 | OB/GYN Progress Note ---
Date of Encounter: 08/07/18 Time of Encounter: 13:00 - Assessment and Plan (1) 34 weeks gestation of Current Visit: Yes Status: Acute (2) Cholelithiasis affecting in third trimester, antepartum Current Visit: Yes Status: Acute 1mg dilaudid IVP for pain (3) NST (non-stress test) nonreactive Current Visit: Yes Status: Acute Per consult with Dr. Cazares extended monitoring will be done Subjective - Subjective Interval history: Ms. Curry is a at 34 weeks 1 day gestation who presents with c/o emesis and RUQ pain since yesterday around 1200. She endorses good fm and denies lof, vb, ctx. She rates her pain at 7/10 and reports last emesis was this morning. She has known cholelithiasis. Her is complicated by GDM and tobacco. Antepartum ROS: movement normal Objective - Vital Signs Vital Signs: Intake and Output 08/07/18 08/07/18 08/07/18 07:59 15:59 23:59 Intake Total 1999 Balance 1999 Intake: IV Fluids 1999 Lactated Ringers 1,000 ML @ 125 1999 / 1999 mls/hr IVC .Q8H JOSE CARLOS Rx#: [id number] Other: Weight 72.6 kg Patient Weight 08/07/18 23:59 Weight 72.6 kg - Exam FHR: category 2 FHR comments: Baseline 135 Minimal to moderate variability Accelerations present but 10x10 not 15x15 Occasional variable decelerations FHR Category II Auscultation: bilateral: normal Abdomen: Present: normal appearance, soft, gravid Uterus: Present: normal, firm - Labs Labs: Abnormal lab results WBC 13.6 K/mcL (4.3-11.1) H 08/07/18 11:44 Neutrophils # 11.3 K/mcL (1.6-8.9) H 08/07/18 11:44 Sodium 135 mEq/L (136-145) L 08/07/18 11:44 Potassium 3.3 mEq/L (3.5-5.1) L 08/07/18 11:44 Carbon Dioxide 20 mEq/L (23-29) L 08/07/18 11:44 Creatinine 0.44 mg/dL (0.60-1.20) L 08/07/18 11:44 Calculated Osmolality 279 (280-300) L 08/07/18 11:44 Lactate Dehydrogenase 113 Units/L (140-271) L 08/07/18 11:44 Urine Clarity Turbid (Clear) A 08/07/18 11:20 Urine Ketones 40 mg/dL (Negative) H 08/07/18 11:20 Urine Blood Small (Negative) H 08/07/18 11:20 Ur Leukocyte Esterase Large (Negative) H 08/07/18 11:20 Ur Squamous Epith Cells Many per lpf (None-Few) H 08/07/18 11:20 Urine Bacteria Many per hpf (None-Few) H 08/07/18 11:20 Ur Culture Indicated? NO. (NO) A 08/07/18 11:20 Protein/Creatinin Ratio 1.00 mg/mg (0.00-0.20) H 08/07/18 11:20 Urine Total Protein 47 mg/dL (1-14) H 08/07/18 11:20
--- NOTE | 2018-08-07 20:03 | Discharge Summary ---
Date of Encounter: 08/07/18 Time of Encounter: 20:02 - Discharge Diagnosis (1) 34 weeks gestation of Priority: Primary Status: Acute Comments: Follow up with Dr. Russell within 7 days labor parameters discussed Discharge home (2) Cholelithiasis affecting in third trimester, antepartum Priority: Secondary Status: Acute Comments: Increase PO hydration [place] 2 tab q 6 hours prn severe pain OTC tylenol for mild to moderate pain BRAT diet x 7 days (3) NST (non-stress test) reactive on surveillance Priority: Secondary Status: Acute - Discharge Medications Prescriptions: Ondansetron ODT [Zofran ODT] 4 mg SL Q4HR #20 tab.rapdis HYDROcodone/Acet 5/325 mg [[place] 5-325 mg] 2 tab PO Q6H PRN 5 Days #40 tablet PRN Reason: Severe Pain Home Medications: Ondansetron HCl [Zofran] 4 mg PO Q6H PRN 07/10/18 [History] Vit #108/Iron/FA [ One Tablet] 1 tab PO DAILY 07/10/18 [History] HYDROcodone/Acet 5/325 mg [[place] 5-325 mg] 2 tab PO Q6H PRN 5 Days #40 tablet 08/07/18 [Rx] Ondansetron ODT [Zofran ODT] 4 mg SL Q4HR #20 tab.rapdis 08/07/18 [Rx] Allergies/Adverse Reactions: Allergy/AdvReac Type Severity Reaction Status Date / Time No Known Allergies Allergy Verified 08/07/18 10:58 Data Procedures and tests throughout hospitalization: Laboratory Tests 08/07/18 08/07/18 08/07/18 11:20 11:20 11:20 WBC RBC Hgb Hct MCV MCH MCHC RDW Plt Count MPV Immature Gran % Seg Neutrophils % Lymphocytes % Monocytes % Eosinophils % Basophils % Neutrophils # Lymphocytes # Monocytes # Eosinophils # Basophils # Sodium Potassium Chloride Carbon Dioxide BUN Creatinine Est GFR ( Amer) Est GFR (Non-Af Amer) BUN/Creatinine Ratio Glucose Calculated Osmolality Uric Acid Calcium AST ALT Lactate Dehydrogenase Urine Color Yellow Urine Clarity Turbid A Urine pH 5.5 Ur Specific [place] 1.013 Urine Protein Trace Urine Glucose (UA) Normal Urine Ketones 40 H Urine Blood Small H Urine Nitrite Negative Urine Bilirubin Negative Urine Urobilinogen Normal Ur Leukocyte Esterase Large H Urine Microscopic RBC Present Urine Microscopic WBC Present Ur Squamous Epith Cells Many H Urine Bacteria Many H Ur Culture Indicated? NO. A Urine Creatinine 47 Protein/Creatinin Ratio 1.00 H Urine Total Protein 47 H Urine Opiates Screen Negative Ur Barbiturates Screen Negative Ur Phencyclidine Scrn Negative Ur Amphetamines Screen Negative U Benzodiazepines Scrn Negative Urine Cocaine Screen Negative U Marijuana (THC) Screen Negative Ur Drug Screen Interp See Below 08/07/18 08/07/18 11:44 11:44 WBC 13.6 H RBC 4.16 Hgb 12.4 Hct 36.8 MCV 88.5 MCH 29.8 MCHC 33.7 RDW 13.6 Plt Count 213 MPV 10.8 Immature Gran % 1.7 Seg Neutrophils % 82.6 Lymphocytes % 9.3 Monocytes % 5.2 Eosinophils % 0.8 Basophils % 0.4 Neutrophils # 11.3 H Lymphocytes # 1.3 Monocytes # 0.7 Eosinophils # 0.1 Basophils # 0.1 Sodium 135 L Potassium 3.3 L Chloride 102 Carbon Dioxide 20 L BUN 9 Creatinine 0.44 L Est GFR ( Amer) > 60 Est GFR (Non-Af Amer) > 60 BUN/Creatinine Ratio 20 Glucose 103 Calculated Osmolality 279 L Uric Acid 4.9 Calcium 9.0 AST 19 ALT 15 Lactate Dehydrogenase 113 L Urine Color Urine Clarity Urine pH Ur Specific [place] Urine Protein Urine Glucose (UA) Urine Ketones Urine Blood Urine Nitrite Urine Bilirubin Urine Urobilinogen Ur Leukocyte Esterase Urine Microscopic RBC Urine Microscopic WBC Ur Squamous Epith Cells Urine Bacteria Ur Culture Indicated? Urine Creatinine Protein/Creatinin Ratio Urine Total Protein Urine Opiates Screen Ur Barbiturates Screen Ur Phencyclidine Scrn Ur Amphetamines Screen U Benzodiazepines Scrn Urine Cocaine Screen U Marijuana (THC) Screen Ur Drug Screen Interp Labs on day of discharge: Labs from last 24 hours 08/07/18 08/07/18 08/07/18 11:44 11:44 11:20 WBC 13.6 H RBC 4.16 Hgb 12.4 Hct 36.8 MCV 88.5 MCH 29.8 MCHC 33.7 RDW 13.6 Plt Count 213 MPV 10.8 Immature Gran % 1.7 Seg Neutrophils % 82.6 Lymphocytes % 9.3 Monocytes % 5.2 Eosinophils % 0.8 Basophils % 0.4 Neutrophils # 11.3 H Lymphocytes # 1.3 Monocytes # 0.7 Eosinophils # 0.1 Basophils # 0.1 Sodium 135 L Potassium 3.3 L Chloride 102 Carbon Dioxide 20 L BUN 9 Creatinine 0.44 L Est GFR ( Amer) > 60 Est GFR (Non-Af Amer) > 60 BUN/Creatinine Ratio 20 Glucose 103 Calculated Osmolality 279 L Uric Acid 4.9 Calcium 9.0 AST 19 ALT 15 Lactate Dehydrogenase 113 L Urine Color Yellow Urine Clarity Turbid A Urine pH 5.5 Ur Specific [place] 1.013 Urine Protein Trace Urine Glucose (UA) Normal Urine Ketones 40 H Urine Blood Small H Urine Nitrite Negative Urine Bilirubin Negative Urine Urobilinogen Normal Ur Leukocyte Esterase Large H Urine Microscopic RBC Present Urine Microscopic WBC Present Ur Squamous Epith Cells Many H Urine Bacteria Many H Ur Culture Indicated? NO. A Urine Creatinine Protein/Creatinin Ratio Urine Total Protein Urine Opiates Screen Ur Barbiturates Screen Ur Phencyclidine Scrn Ur Amphetamines Screen U Benzodiazepines Scrn Urine Cocaine Screen U Marijuana (THC) Screen Ur Drug Screen Interp 08/07/18 08/07/18 11:20 11:20 WBC RBC Hgb Hct MCV MCH MCHC RDW Plt Count MPV Immature Gran % Seg Neutrophils % Lymphocytes % Monocytes % Eosinophils % Basophils % Neutrophils # Lymphocytes # Monocytes # Eosinophils # Basophils # Sodium Potassium Chloride Carbon Dioxide BUN Creatinine Est GFR ( Amer) Est GFR (Non-Af Amer) BUN/Creatinine Ratio Glucose Calculated Osmolality Uric Acid Calcium AST ALT Lactate Dehydrogenase Urine Color Urine Clarity Urine pH Ur Specific [place] Urine Protein Urine Glucose (UA) Urine Ketones Urine Blood Urine Nitrite Urine Bilirubin Urine Urobilinogen Ur Leukocyte Esterase Urine Microscopic RBC Urine Microscopic WBC Ur Squamous Epith Cells Urine Bacteria Ur Culture Indicated? Urine Creatinine 47 Protein/Creatinin Ratio 1.00 H Urine Total Protein 47 H Urine Opiates Screen Negative Ur Barbiturates Screen Negative Ur Phencyclidine Scrn Negative Ur Amphetamines Screen Negative U Benzodiazepines Scrn Negative Urine Cocaine Screen Negative U Marijuana (THC) Screen Negative Ur Drug Screen Interp See Below Date of admission: 08/07/18 11:37 Primary care physician: PCP NONE Discharging clinician: Colette Brooks Anticipated date of discharge: 08/07/18 - Patient Status Disposition: Home, Self-Care Condition: Good Functional capacity at discharge: independent ambulation Overall status at discharge: patient is progressing back to baseline - Discharge Instructions Follow Up With: NONE,PCP [Primary Care Provider] - Balta Russell DO [Partnered Physician] - - Diet and Activity Activity: increase activity as tolerated Diet: regular diet Hospital Course COURTROOM DEPUTY Reason for admission: other Discharge diagnosis: other Hospital course: Ms. Curry presents from home with c/o n/v and RUQ pain since yesterday at 1200. She endorses good fm and denies lof, vb, ctx. She was monitored for about 6 hours s/t FHR on EFM. After 3 liters LR FHR was reactive and patient reports she feels better. She is requesting to go home and was offered prescriptions to go home with. She accepted and was given norco and zofran. Time Attestation: Total time spent providing and/or coordinating discharge services: Time Spent: Less than 30 minutes Exam - Constitutional General appearance IM: A&O X 3 - Respiratory Respiratory exam: Present: CTAB - Cardiovascular Cardiovascular exam IM: Present: RRR, +S1, +S2 - GI/Abdominal GI/Abdominal exam IM: normal bowel sounds, no peritoneal signs - Rectal Rectal exam: deferred - Uterine Tone: Firm - Extremities Exam Extremities exam IM: Present: normal capillary refill, normal inspection, radial pulses palpable and symmetrical - Neurological Exam Neurological exam: alert, CN II-XII intact, normal gait, oriented X3, reflexes normal, no focal deficits, strengths equal and symetr throughout - VTE Reasons for not Prescribing Prophylaxis: Treatment not Indicated - Low risk for VTE
[~2018-08-07 20:35] MED LIST: *HR* HYDROcodone/Acet 5/325 mg TABLET PO PRN; *HR* HYDROmorphone (PF) 1 MG/ML SYRINGE IVP PRN; Ondansetron 4 MG/2 ML VIAL IVP ONE; Ondansetron 4 MG/2 ML VIAL ONE; Ringers Solution, Lactated 1,000 ML IVC ONE; Ringers Solution, Lactated 1,000 ML ONE
== END | disposition home or self-care (01) ==
LOC: 1NENULAB
PROVIDERS: ADMIT Advanced Practice Midwife; ATTEND Advanced Practice Midwife

== ENCOUNTER 2018-09-11 08:00 | Inpatient (IN) ==
[2018-09-11] MEDS ORDERED: Ondansetron ODT 4 MG TAB.RAPDIS SL ONE (08:30)
[2018-09-11] MEDS ORDERED: Naloxone 0.4 MG/ML INJ IVP PRN ×2 (08:50→14:45)
[2018-09-11] MEDS ORDERED: *HR* Nalbuphine 10 MG/ML AMPUL IVP PRN (08:50)
[2018-09-11] MEDS ORDERED: Famotidine 20 MG/2 ML VIAL IVP PRN (08:50)
[2018-09-11] MEDS ORDERED: Metoclopramide 10 MG/2 ML VIAL IVP PRN (08:50)
[2018-09-11 09:23] LABS: Basophils # 0.1 K/mcL (0.0-0.2); Basophils % 0.5 %; Eosinophils # 0.1 K/mcL (0.0-0.6); Eosinophils % 1.1 %; Hematocrit 36.5 % (35.3-44.9); Hemoglobin 12.2 g/dL (11.5-15.4); Immature Granulocytes % 1.1 % (0-4); Lymphocytes # 2.2 K/mcL (0.6-4.6); Lymphocytes % 18.7 %; Mean Corpuscular HGB Conc 33.4 g/dL (31.6-35.5); Mean Corpuscular Volume 89.7 fL (83.0-100.0); Mean Platelet Volume 10.8 fL (9.4-12.4); Monocytes # 0.5 K/mcL (0.0-1.3); Neutrophils # 8.6 K/mcL (1.6-8.9); Platelet Count 210 K/mcL (140-400); Red Blood Count 4.07 M/mcL (3.82-4.97); Red Cell Distribution Width 14.3 % (11.5-14.5); Segmented Neutrophils % 74.6 %
[2018-09-11 09:33] LABS: Amphetamine Screen,Urine Negative ng/mL (Cutoff=1000); Barbiturate Screen,Urine Negative ng/mL (Cutoff=200); Benzodiazepines Screen,Urine Negative ng/mL (Cutoff=200); Cannabinoid Screen,Urine Negative ng/mL (Cutoff = 50); Cocaine Screen,Urine Negative ng/mL (Cutoff= 300); Opiate Screen,Urine Negative ng/mL (Cutoff=300); Phencyclidine Screen,Urine Negative ng/mL (Cutoff=25)
--- NOTE | 2018-09-11 10:11 | OB/GYN History & Physical ---
Date of Encounter: 09/11/18 Time of Encounter: 10:08 Assessment and Plan (1) Gestational diabetes Current visit: Yes Status: Acute Qualifiers: Gestational diabetes mellitus control: diet-controlled Trimester: third trimester Qualified Code(s): O24.410 - Gestational diabetes mellitus in , diet controlled (2) 39 weeks gestation of Current visit: Yes Status: Acute Admit for IOL. Plan for cytotec induction. Epidural when requested. AROM when able. Anticipate . (3) Cholelithiasis affecting in third trimester, antepartum Current visit: No Status: Acute History of Present Illness Chief complaint: IOL, GDMA1, Cholelithiasis HPI: Ms. Curry is a 28 year old female presenting for IOL at 39w1d. This has been complicated by GDMA1 with excellent diet control. She has also had 2 gallbladder attacks this . She has an appoinment scheduled in September with general surgery. She denies complaints today. Good FM. O positive Rubella immune Varicella non-immune Serologies negative GBS negative Past Med Surg Social Fam HX - Past Medical History Medical history: other Additional medical history: gall stones this Psychiatric history: no psych history - Past Surgical History Surgical History: no surgical history Additional surgical history: Hx of diet controlled GDM, Tobacco use - Social History Smoking Status: Current every day smoker Packs per day: <0.5 Smokeless Tobacco Status: No Alcohol use: none Drug use: none - Family History Mother Adopted: No Family Member Ethnicity: Non- Living Status: Still Living Hx Family Cardiac Disorders: No Hx Family Respiratory Disorders: No Hx Family Cancer: No Hx Family GI Disorders: No Hx Family Genitourinary Disorders: No Hx Family Endocrine Disorder: No Hx Family Musculoskeletal Disorders: No Hx Family Neuromuscular Disorders: No Hx Family Neurologic Disorders: No Hx Family HEENT Disorders: No Hx Family Autoimmune Disorders: No Hx Family Reproductive Disorders: No Hx Family Psychosocial Disorders: No Hx Family Medical Disorders: No Obstetrical History - Pregnancies : 3 Para: 1 Term: 1 : 0 Ab's: 1 Livin - History/Complications History/Complications: Pt reports an elective termination several years ago and then a full term without complications. Medications and Allergies Vit #108/Iron/FA [ One Tablet] 1 tab PO DAILY 07/10/18 [History] Ferrous Sulfate [Iron] 1 tab PO DAILY 09/11/18 [History] Allergy/AdvReac Type Severity Reaction Status Date / Time No Known Allergies Allergy Verified 09/11/18 08:26 Review of System OB All systems PM: reviewed and no additional remarkable complaints except as stated Exam - Constitutional Constitutional: well developed, well nourished, no acute distress - HEENT HEENT: Mucus Membranes Moist - Lungs Respiratory exam: CTAB - Cardiovascular Cardiovascular exam: RRR - Abdomen Abdomen: Present: gravid (EFW by shanell 7 1/2lbs), non tender - Extremities Extremities exam: normal inspection - Cervix Dilation: 3 Effacement: 50 - Anus/Rectum Anus/Rectum: Present: normal perianal skin Results Result Diagrams: 09/11/18 08:50 09/11/18 08:50 Abnormal lab results WBC 11.6 K/mcL (4.3-11.1) H 09/11/18 08:50 Glucose 115 mg/dL (70-105) H 09/11/18 08:50 All other labs normal. - VTE Reasons for not Prescribing Prophylaxis: Treatment not Indicated - Low risk for VTE
--- NOTE | 2018-09-11 10:11 | Anesthesia Evaluation PreOp ---
Date of Encounter: 09/11/18 Time of Encounter: 09:53 - Past History Planned Operation: DANI Cardiac History: Denies any Significant Hx Pulmonary History: Smoker, Pack/yr (3pk/yr, less during ) LIFE SCIENCE TEACHER History: Denies Any Significant HX Other Medical History: Other (cholelithiasis, anemia) Anesthesia History: No Prior Anesthetic Complications, Past Anesthesia : Yes Alcohol Use: none Drug use: none Medications and Allergies Vit #108/Iron/FA [ One Tablet] 1 tab PO DAILY 07/10/18 [History] Ferrous Sulfate [Iron] 1 tab PO DAILY 09/11/18 [History] Allergy/AdvReac Type Severity Reaction Status Date / Time No Known Allergies Allergy Verified 09/11/18 08:26 - Meds/Allergy Pre-op Review Medications Reviewed: Yes Allergies Reviewed: Yes Beta Blockers on Current Med List: No Anesthesia Results - Labs 09/11/18 08:50 09/11/18 08:50 Anesthesia Exam BP 108/63 P 96 R 16 T 97.8 FHT 130s Height: 5'4" Weight: 75.7kg NPO (# of Hours): 2 Pain Scale: 2 Pain Scale Used: Numeric (1 - 10) - HEENT Pupil (Motor): Pupils equal Mallampati: II Teeth: Normal Oral Opening: Greater than 3 - LIFE SCIENCE TEACHER LOC: Oriented LIFE SCIENCE TEACHER Motor: Normal RUE, Normal LUE, Normal RLE, Normal LLE, Normal Face [employer] SCIENCE TEACHER Sensory: Normal: RUE, LUE, RLE, LLE, Face - Cardiac Rhythm: Regular Murmur: None JVD: No Carotid Bruit: No - Pulmonary Breath Sounds: bilateral Clear Respiratory Effort: Symmetrical Anesthesia Assess/Plan ASA Score: 2 Level of consciousness: Cooperative Anesthetic Plan: Epidural Autologous Blood: No Monitoring Plan: Standard Monitors Recovery Plan: Other
[2018-09-11] MEDS ORDERED: miSOPROStol 100 MCG TABLET PO STA (10:15)
[2018-09-11] MEDS: Ringers Solution, Lactated 1,000 ML IVC SCH ×2 (11:20→14:57)
--- NOTE | 2018-09-11 14:42 | OB Labor Progress Note ---
Date of Encounter: 09/11/18 Time of Encounter: 14:40 Labor Progress Note - Subjective Subjective: Pt reports increasing pain with contractions and desires an epidural. - Cervix Cervix: 4/80/-1 - Heart Tones Heart Tones: Category I - [place]: Q2-3 minutes - Interventions Interventions: AROM for small amount clear fluid - Plan Plan: Epidural per pt request. Will augment with pitocin after epidural if needed for adequate contractions. Anticipate .
[2018-09-11] MEDS ORDERED: *HR* Ropivacaine/PF 0.2% 20 ML VIAL EP ONE (14:45)
[2018-09-11] MEDS ORDERED: Ondansetron 4 MG/2 ML VIAL IVP PRN (14:45)
[2018-09-11] MEDS ORDERED: EPHEDrine 50 MG/ML VIAL IVP PRN (14:45)
[2018-09-11] MEDS ORDERED: Epidural Premix (fent/bupiv) 110 ML EP SCH (14:45)
[2018-09-11] MEDS ORDERED: *HR* FentaNYL (PF) 100 MCG/2 ML VIAL EP ONE (14:45)
[2018-09-11] MEDS ORDERED: Epidural Premix (fent/bupiv) 110 ML EP ONE (14:51)
[2018-09-11] MEDS ORDERED: *HR* FentaNYL (PF) 100 MCG/2 ML VIAL ONE (14:52)
--- NOTE | 2018-09-11 15:28 | Anesthesia Procedures ---
Addendum entered and electronically signed by Mack Rabago CRNA 09/11/18 22:25: Infant A Delivery Date: 09/11/18 Infant Delivery Time: 20:14 Original Note: Date of Encounter: 09/11/18 Time of Encounter: 14:55 Procedures: Anesthesia - Epidural/Spinal Patient ID/Chart reviewed: Yes Patient examined: Yes OB Eval: Gestational age: 39.1 OB Eval: : 3 OB Eval: Hx Para: 1 OB Eval: Dilated at (cm): 4 OB Eval: Contractions: Non-stressed pattern Consent Obtained: Yes Supplemental Oxygen: None/Room Air Site Prep: Aseptic Technique, Sterile prep and drape, Povidone-Iodine 1% Patient position: upright Local Anesthetic: Lidocaine 1% Amount of Local Anesthetic used: 3 Touhy Needle Gauge: 18 Touhy Needle Depth (cm): 5 Catheter Depth at Skin (cm): 13 Test Dose (1.5% Lido + Epi): Volume given (mls): 3 Test Dose Result: Negative Loading Dose: Fentanyl (mcg): 100 Loading Dose: Other: Ropivicaine 0.2% 8ml Loading Dose Administered: Thru Catheter Infusion Med: 0.125% Bupivacaine w/ 2 mcg/ml Fentanyl Infusion Rate (mls/hr): [address]: Tegaderm, Tape Interspace Used: L3-L4 Loss of Resistance (RONY): Yes (saline) Blood: No CSF: No Paresthesia: No Procedure: DANI placed 1st pass in upright position, negative heme, negative CSF, without any immediate noted complications. VSS and FHT stable throughout. Vitals + FHT's: 1455 BP 120/55 P 84 R 18 1521 BP 101/60 P 97 R 16 FHT 120s
[2018-09-11] MEDS ORDERED: Oxytocin 20 units/ LR 1000 mL 20 UNIT/1,000 ML BAG IVC SCH (17:30)
--- NOTE | 2018-09-11 20:30 | OB/GYN Procedure Note ---
Delivery - Delivery Date: 09/11/18 Provider: Valentine Sandoval Intrapartum events: none Delivery induction: AROM, oxytocin Delivery monitor: external FHT, internal uterine Anesthesia: epidural Quantitated Blood Loss: 250 - (s) Infant A Infant Delivery Date: 09/11/18 Delivery Time: 20:14 Presentation: vertex Position: GADIEL Route of delivery: Gender: Female Viability: Viable Pounds: 6 Ounces: 8 Weight Gram: 2.955 kg at 1 minute: 9 at 5 mins: 10 Shoulder Dystocia: not encountered Specimens collected: cord blood Placenta: spontaneous Cord: 3 umbilical vessels - Repair Episiotomy: none Laceration Description: None - Complications Delivery complications: none Delivery comments: CNM called to room when pt complete and +2. She pushed effectively to over intact perineum for viable female weighing 6lbs 8oz with apgars 9 at one minute and 10 at five minutes. After pulsations ceased the cord was clamped and cut and the placenta delivered spontaneous and intact. No lacerations noted. EBL 250ml. Mother and baby stable in kangaroo care following . - Disposition Mom disposition: stable in LDR [place] disposition: stable in LDR
[2018-09-12] MEDS ORDERED: Oxytocin 20 units/ LR 1000 mL 20 UNIT/1,000 ML BAG IVC SCH (00:26)
[2018-09-12] MEDS ORDERED: Acetaminophen 325 MG TABLET PO PRN (00:26)
[2018-09-12] MEDS ORDERED: Ibuprofen 600 MG TABLET PO PRN (00:26)
[2018-09-12] MEDS ORDERED: Measles/Mumps/Rubella Vacc 0.5 ML VIAL SQ PRN (00:26)
[2018-09-12] MEDS ORDERED: Prenatal Vit/FA 1 EACH TABLET PO SCH (09:00)
--- NOTE | 2018-09-12 10:04 | Discharge Summary ---
Date of Encounter: 09/12/18 Time of Encounter: 10:01 - Discharge Diagnosis (1) Vaginal delivery Priority: Primary Status: Acute Comments: S/P vaginal delivery day 1 Pain well controlled Lochia light and without clots VSS Tolerating regular diet; passing flatus Voiding without difficulty Bottle feeding Patient requests discharge home today; appropriate for discharge POC per consult with Dr Treviño (2) Gestational diabetes Priority: Secondary Status: Acute Comments: Will need glucose tolerance test Qualifiers: Gestational diabetes mellitus control: diet-controlled Trimester: third trimester Qualified Code(s): O24.410 - Gestational diabetes mellitus in , diet controlled (3) Cholelithiasis affecting in third trimester, antepartum Priority: Secondary Status: Acute Comments: Follow up with general surgery scheduled in September - Discharge Medications Prescriptions: RX: Ibuprofen [Motrin] 600 mg PO Q6HR PRN #30 tablet PRN Reason: Cramping RX: Docusate [Colace] 100 mg PO BID #30 capsule RX: Ferrous Sulfate 325 mg PO DAILY #90 tablet Home Medications: RX: Vit #108/Iron/FA [ One Tablet] 1 tab PO DAILY 07/10/18 [History] RX: Acetaminophen [Tylenol] 650 mg PO Q6HR PRN tablet 09/12/18 [Rx] RX: Docusate [Colace] 100 mg PO BID #30 capsule 09/12/18 [Rx] RX: Ferrous Sulfate 325 mg PO DAILY #90 tablet 09/12/18 [Rx] RX: Ibuprofen [Motrin] 600 mg PO Q6HR PRN #30 tablet 09/12/18 [Rx] Allergies/Adverse Reactions: Allergy/AdvReac Type Severity Reaction Status Date / Time No Known Allergies Allergy Verified 09/11/18 08:26 Data Procedures and tests throughout hospitalization: Laboratory Tests 09/11/18 09/11/18 09/11/18 08:50 08:50 08:50 WBC 11.6 H RBC 4.07 Hgb 12.2 Hct 36.5 MCV 89.7 MCH 30.0 MCHC 33.4 RDW 14.3 Plt Count 210 MPV 10.8 Immature Gran % 1.1 Seg Neutrophils % 74.6 Lymphocytes % 18.7 Monocytes % 4.0 Eosinophils % 1.1 Basophils % 0.5 Neutrophils # 8.6 Lymphocytes # 2.2 Monocytes # 0.5 Eosinophils # 0.1 Basophils # 0.1 Glucose Urine Opiates Screen Negative Ur Barbiturates Screen Negative Ur Phencyclidine Scrn Negative Ur Amphetamines Screen Negative U Benzodiazepines Scrn Negative Urine Cocaine Screen Negative U Marijuana (THC) Screen Negative Ur Drug Screen Interp See Below Hep Bs Antigen Nonreactive 09/11/18 08:50 WBC RBC Hgb Hct MCV MCH MCHC RDW Plt Count MPV Immature Gran % Seg Neutrophils % Lymphocytes % Monocytes % Eosinophils % Basophils % Neutrophils # Lymphocytes # Monocytes # Eosinophils # Basophils # Glucose 115 H Urine Opiates Screen Ur Barbiturates Screen Ur Phencyclidine Scrn Ur Amphetamines Screen U Benzodiazepines Scrn Urine Cocaine Screen U Marijuana (THC) Screen Ur Drug Screen Interp Hep Bs Antigen Labs on day of discharge: Labs from last 24 hours 09/11/18 08:50 Hep Bs Antigen Nonreactive Date of admission: 09/11/18 08:07 Primary care physician: PCP RITA Consults: 09/12/18 00:26 Consult to [employer] [CONS] Routine Comment: Vaginal delivery, consult needed Discharging clinician: Colette Quezada Anticipated date of discharge: 09/12/18 - Patient Status Disposition: Home, Self-Care Condition: Good Functional capacity at discharge: independent ambulation Overall status at discharge: patient is progressing back to baseline - Discharge Instructions Follow Up With: NONE,PCP [Primary Care Provider] - Valentine Sandoval CNM [Non-Partnered Physician] - - Diet and Activity Activity: increase activity as tolerated Diet: regular diet Hospital Course Reason for admission: induction of labor, IUP at term Delivery: Episiotomy: none Laceration: none Other procedures: none complications: none Discharge diagnosis: IUP at term delivered baby: female Time Attestation: Total time spent providing and/or coordinating discharge services: Time Spent: Less than 30 minutes Exam - Constitutional Vitals: Temp Pulse Resp BP Pulse Ox 97.9 F 89 18 108/67 96 09/12/18 01:10 09/12/18 01:10 09/12/18 01:10 09/12/18 01:10 09/12/18 01:10 General appearance IM: cooperative, A&O X 3, pleasant - Respiratory Respiratory exam: Present: CTAB - Cardiovascular Cardiovascular exam IM: Present: RRR, +S1, +S2 - GI/Abdominal GI/Abdominal exam IM: normal bowel sounds, soft - Rectal Rectal exam: deferred - Uterine Tone: Firm Uterus Position: At Umbilicus, Midline - Extremities Exam Extremities exam IM: Present: normal capillary refill, normal inspection, radial pulses palpable and symmetrical - Neurological Exam Neurological exam: alert, oriented X3
[2018-09-12 16:29] VITALS: BP 105/72
== END 2018-09-12 22:00 | disposition home or self-care (01) | DRG 560 ==
LOC: 1NENULAB 08:07 → 1NENUOBS 23:05
PROVIDERS: ADMIT Registered Nurse; ATTEND Registered Nurse